=== PATIENT | female | born 1955 | race American Indian/Alaskan Native ===

== ENCOUNTER 2019-05-23 13:52 | Inpatient (IN) | payer MEDICARE, OTHER ==
[2019-05-23] MEDS ORDERED: cloNIDine 0.2 MG TAB PO ONE (14:18)
--- NOTE | 2019-05-23 14:22 | Emergency Department Report ---
HPI - General Time Seen by Provider: 05/23/19 14:10 - HPI HPI: Room 4 The pt is a 64 y/o F p/w a cc of HTN. The pt states she went to dialysis today but upon arrival the pt was found to be hypertensive and subsequently sent to the ED without performing HD. The pt is asymptomatic and only c/o being hungry. Pt states she's been compliant with her antihypertensives. The pt missed her previous HD and was last dialyzed 05/19/19 ED Past Medical Hx - Past Medical History Hx Hypertension: Yes Hx Diabetes: Yes Hx Renal Disease: Yes (ESRD T, Th, Sat) Additional medical history: hyperparathyroidism - Surgical History Additional Surgical History: right chest vas-cath, BTL - Family History Family history: no significant - Social History Smoking Status: Former Smoker (none x 1 year) Substance Use Type: None ED Review of Systems ROS: Stated complaint: HBP Other details as noted in HPI Constitutional: no symptoms reported Eyes: denies: eye pain ENT: denies: throat pain Respiratory: no symptoms reported Cardiovascular: denies: chest pain Endocrine: no symptoms reported Gastrointestinal: denies: abdominal pain Musculoskeletal: denies: back pain Neurological: denies: headache Physical Exam - Physical Exam Physical Exam: GEN: WD WD F sitting on stretcher in NAD HEENT: EOMI, NCAT NECK: Trachea midline, no stridor CV: rrr no m/r/g PULM: CTA bilat, no resp distress ABD: S/NT/ND +BS SKIN: No diaphoresis NEURO: GCS 15 MS: no deformity ED Course - Consultations Consultation #1: 05/23/19 17:14 case d/w Dr Cruz- rec pt be admitted and have HD tonight. ED Medical Decision Making - Lab Data Result diagrams: 05/23/19 14:23 05/23/19 14:23 Laboratory Tests 05/23/19 05/23/19 05/23/19 14:23 14:23 15:42 WBC 2.9 L RBC 4.33 Hgb 13.2 Hct 41.2 MCV 95 H MCH 30 MCHC 32 RDW 17.2 H Plt Count 93 L Lymph % (Auto) 35.2 H Newberry % (Auto) 5.4 Eos % (Auto) 1.1 Baso % (Auto) 1.2 Lymph # 1.0 L [place] # 0.2 Eos # 0.0 Baso # 0.0 Seg Neutrophils % 57.1 Seg Neutrophils # 1.7 L Sodium 139 Potassium 4.6 Chloride 103.9 Carbon Dioxide 17 L Anion Gap 23 BUN 55 H Creatinine 9.6 H Estimated GFR 6 BUN/Creatinine Ratio 6 Glucose 68 L Calcium 8.6 Hepatitis A IgM Ab Non-reactive Hep Bs Antigen Non-reactive Hep B Core IgM Ab Non-reactive Hepatitis C Antibody Reactive A - Differential Diagnosis HTN, ESRD Critical care attestation.: If time is entered above; I have spent that time in minutes in the direct care of this critically ill patient, excluding procedure time. ED Disposition Clinical Impression: Hypertension, ESRD needing dialysis Disposition: OP ADMIT IP TO THIS HOSP Is pt being admited?: Yes Does the pt Need Aspirin: Yes Condition: Fair Instructions: Hypertension (ED) Time of Disposition: 17:15 (Hospitalist paged (Dr Escobedo))
[2019-05-23 14:45] LABS: Basophils % (Auto) 1.2 % (0.0-1.8); Eosinophils % (Auto) 1.1 % (0.0-4.3); Hematocrit 41.2 % (35.5-45.6); Hemoglobin 13.2 gm/dl (11.8-15.2); Lymphocytes % (Auto) 35.2 % (13.4-35.0); Mean Corpuscular HGB Conc 32 % (32-34); Mean Corpuscular Volume 95 fl (84-94); Monocytes # (Auto) 0.2 K/mm3 (0.0-0.8); Monocytes % (Auto) 5.4 % (0.0-7.3); Red Blood Count 4.33 M/mm3 (3.65-5.03); Red Cell Distribution Width 17.2 % (13.2-15.2)
[2019-05-23 14:46] LABS: Platelet Count 93 K/mm3 (140-440)
[2019-05-23 14:55] LABS: Calcium 8.6 mg/dL (8.4-10.2)
[2019-05-23] MEDS ORDERED: hydrALAZINE 20 MG/1 ML INJ IV ONE (15:59)
[2019-05-23 16:18] LABS: Hepatitis C Virus Antibody Reactive (NonReactive)
[2019-05-23 17:03] LABS: Hepatitis B Surface Antigen Non-Reactive (Negative)
[2019-05-23] MEDS ORDERED: ALBUTEROL 2.5 MG/3 ML NEBU IH PRN (17:23)
--- NOTE | 2019-05-23 17:23 | History and Physical Report ---
History of Present Illness Chief complaint: I need dialysis History of present illness: 64 YO Female with ESRD on HD(T,R,Sa) last dialyzed on 05/19/19 ,DM, HTN, Hyperparathyroidism presents to ED for evaluation. Pt was in her usual state of health and went to her dialysis center for her routine scheduled dialysis. Pt acknowledges missed dialysis. Pt was found to have Systolic Blood Pressure above 225 and was unable to undergo dialysis. EMS notified, and upon arrival the patient was found to be in distress and transported to [facility]. Pt seen and evaluated in ED and found to have Hypertensive Urgency, as well as ESRD. Pt treated with supportive care and antihypertensive therapy. Nephrology consulted in ED. Pt placed in Observation status, and admitted to medical floor. Pt denies fever, chills, CP, Palpitations, NVD, Trauma, BRBPR, Productive cough, skin rash, or recent ill contacts. No prior admission for review. No medication listed for reconciliation at time of admission. Past History Past Medical History: other (see hpi) Past Surgical History: Other (Dialysis access) Social history: single. denies: smoking, alcohol abuse, prescription drug abuse Family history: hypertension Medications and Allergies Allergies Allergy/AdvReac Type Severity Reaction Status Date / Time No Known Allergies Allergy Unverified 05/23/19 14:37 Review of Systems Constitutional: no weight loss, no weight gain, no chills Ears, nose, mouth and throat: no ear pain, no ear discharge, no tinnitis, no decreased hearing, no nose pain, no nasal congestion, no sinus pressure Cardiovascular: no chest pain, no orthopnea, no rapid/irregular heart beat, no edema, no syncope, no lightheadedness Respiratory: no cough, no cough with sputum, no hemoptysis Gastrointestinal: no abdominal pain, no nausea, no diarrhea, no constipation, no change in bowel habits, no coffee ground emesis Genitourinary Female: no pelvic pain, no menorrhagia, no dysuria, no urinary frequency Rectal: no pain, no incontinence, no bleeding Musculoskeletal: no neck stiffness, no neck pain, no shooting arm pain, no arm numbness/tingling, no shooting leg pain, no leg numbness/tingling Integumentary: no rash, no pruritis, no redness, no sores, no jaundice, no boils Neurological: no transient paralysis, no paralysis, no weakness, no numbness, no tingling, no syncope, no tremors Psychiatric: no anxiety, no memory loss, no sleep disturbances, no change in appetite, no change in libido Endocrine: no cold intolerance, no heat intolerance, no excessive thirst, no polydipsia, no flushing Hematologic/Lymphatic: no easy bruising, no easy bleeding, no lymphadenopathy Allergic/Immunologic: no urticaria, no allergic rhinitis, no persistent infections, no anaphylaxis Exam - Constitutional Vitals: Temp Pulse Resp BP Pulse Ox 98.0 F 66 17 146/66 99 05/23/19 14:19 05/23/19 16:55 05/23/19 16:55 05/23/19 16:55 05/23/19 16:55 General appearance: Present: mild distress - EENT Eyes: Present: PERRL ENT: hearing intact, clear oral mucosa - Neck Neck: Present: supple, normal ROM - Respiratory Respiratory effort: normal Respiratory: bilateral: CTA - Cardiovascular Heart Sounds: Present: S1 & S2. Absent: rub, click - Extremities Extremities: pulses symmetrical, No edema Peripheral Pulses: within normal limits - Abdominal General gastrointestinal: Present: soft, non-tender, non-distended, normal bowel sounds Female genitourinary: Present: normal - Integumentary Integumentary: Present: clear, warm, dry - Musculoskeletal Musculoskeletal: gait normal, strength equal bilaterally - Psychiatric Psychiatric: appropriate mood/affect, intact judgment & insight - Neurologic Neurologic: CNII-XII intact, moves all extremities Results - Labs CBC & Chem 7: 05/23/19 14:23 05/23/19 14:23 Labs: Abnormal lab results 05/23/19 05/23/19 05/23/19 Range/Units 14:23 14:23 15:42 WBC 2.9 L (4.5-11.0) K/mm3 MCV 95 H (84-94) fl RDW 17.2 H (13.2-15.2) % Plt Count 93 L (140-440) K/mm3 Lymph % (Auto) 35.2 H (13.4-35.0) % Lymph # 1.0 L (1.2-5.4) K/mm3 Seg Neutrophils # 1.7 L (1.8-7.7) K/mm3 Carbon Dioxide 17 L (22-30) mmol/L BUN 55 H (9-20) mg/dL Creatinine 9.6 H (0.8-1.5) mg/dL Glucose 68 L (75-100) mg/dL Hepatitis C Antibody Reactive A (NonReactive) Assessment and Plan - Patient Problems (1) ESRD needing dialysis Current Visit: No Status: Acute Plan to address problem: Nephrology consulted in ED, strict I/O, monitor uop q shift, avoid nephrotoxic agents, (2) Hypertensive urgency, malignant Current Visit: No Status: Acute Plan to address problem: Monitor BP q shift, continue medical management. (3) Diabetes Current Visit: No Status: Acute Plan to address problem: ADA diet, insulin, accu check (4) DVT prophylaxis Current Visit: No Status: Acute Plan to address problem: SCD filipe BLE while in bed,
[2019-05-23] MEDS ORDERED: SODIUM CHLORIDE 0.9% 100 ML IV PRN (18:52)
[2019-05-23] MEDS: ONDANSETRON 4 MG/2 ML INJ IV PRN (20:43)
[2019-05-23] MEDS ORDERED: SODIUM CHLORIDE*PRIMING MACHINE ONLY FOR DIALYSIS MC ONE (23:45)
[2019-05-24] MEDS ORDERED: cloNIDine 0.1 MG TAB PO ONE (00:59)
[2019-05-24] MEDS: hydrALAZINE 100 MG TAB PO SCH ×4 (01:26→23:22)
[2019-05-24] MEDS: ACETAMINOPHEN 325 MG TAB PO PRN ×3 (01:31→23:20)
[2019-05-24 05:12] LABS: Calcium 8.3 mg/dL (8.4-10.2)
[2019-05-24] MEDS ORDERED: hydrALAZINE 20 MG/1 ML INJ IV ONE (06:03)
[2019-05-24] MEDS: PANTOPRAZOLE 40 MG TAB PO SCH (12:03)
[2019-05-24] MEDS: FOLIC ACID 1 MG TAB PO SCH (12:09)
--- NOTE | 2019-05-24 12:12 | Progress Note ---
Assessment and Plan Impression * End-stage renal disease on maintenance hemodialysis * Accelerated hypertension * Diabetes * Anemia secondary to ESRD Recommendations * Patient is status post dialysis yesterday * Her blood pressure is still elevated this morning. Shall adjust antihypertensive meds * Avoid nephrotoxins * Monitor fluid status and electrolytes closely * No indication for dialysis treatment today * Binders with meals * Epogen per protocol when her blood pressure allows * Adjust meds for ESRD state * Thank you very much for the consultation. Shall follow along with you Subjective Date of service: 05/24/19 Interval history: 64 YO Female with ESRD on HD(T,R,Sa) last dialyzed on 05/19/19 ,DM, HTN, Hyperparathyroidism presents to ED for evaluation. Pt was in her usual state of health and went to her dialysis center for her routine scheduled dialysis. Pt acknowledges missed dialysis. Pt was found to have Systolic Blood Pressure above 225 and was unable to undergo dialysis. EMS notified, and upon arrival the patient was found to be in distress and transported to [facility]. Pt seen and radha luated in ED and found to have Hypertensive Urgency, as well as ESRD. Pt treated with supportive care and antihypertensive therapy. Nephrology consulted in ED. Pt placed in Observation status, and admitted to medical floor. Pt denies fever, chills, CP, Palpitations, NVD, Trauma, BRBPR, Productive cough, skin rash, or recent ill contacts. No prior admission for review. No medication listed for reconciliation at time of admission. Patient was admitted to the hospital yesterday and had uneventful hemodialysis last night. Patient denies any shortness of breath today Objective - Vital Signs Vital signs: Vital Signs - 12hr 05/24/19 05/24/19 05/24/19 01:26 06:00 06:11 Temperature Pulse Rate 66 66 Pulse Rate [ Right Brachial] Respiratory Rate Blood Pressure 209/109 188/72 Blood Pressure 188/72 [Left] O2 Sat by Pulse Oximetry 05/24/19 05/24/19 07:53 08:35 Temperature 98.3 F Pulse Rate 71 Pulse Rate [ 71 Right Brachial] Respiratory 18 18 Rate Blood Pressure 183/82 Blood Pressure [Left] O2 Sat by Pulse 99 99 Oximetry - General Appearance General appearance: well-developed, well-nourished, appears stated age EENT: PERRL, mucous membranes moist Neck: no JVD, no thyromegaly, no carotid bruit, supple, other (IJ PermCath in place) Respiratory: Present: Clear to Ascultation Cardiology: regular, normal heart rate, S1S2, no murmurs Gastrointestinal: normal, normoactive bowel sounds Integumentary: other (no edema) - Lab 05/23/19 14:23 05/24/19 03:46 Most recent lab results Calcium 8.3 mg/dL (8.4-10.2) L 05/24/19 03:46 Medications & Allergies - Medications Allergies/Adverse Reactions: Allergies No Known Allergies Allergy (Unverified 05/23/19 14:37) Home Medications: Home Medications Medication Instructions Recorded Confirmed Last Taken Type Folic Acid [Folvite] 1 mg PO DAILY 05/24/19 05/24/19 Unknown History Imdur ER 60 mg PO DAILY 05/24/19 05/24/19 Unknown History Melatonin/Pyridoxine HCl (B6) 3 mg PO HS 05/24/19 05/24/19 Unknown History [Melatonin 3 mg Tablet] NIFEdipine [Nifedipine ER] 90 mg PO DAILY 05/24/19 05/24/19 Unknown History Pantoprazole [Protonix] 40 mg PO QDAY 05/24/19 05/24/19 Unknown History cloNIDine 0.1 mg PO TID 05/24/19 05/24/19 Unknown History hydrALAZINE [Apresoline TAB] 100 mg PO TID 05/24/19 05/24/19 Unknown History labetaloL [Labetalol 200mg TAB] 400 mg PO Q12HR 05/24/19 05/24/19 Unknown History Active Medications: Generic Name Dose Route Start Last Admin Trade Name Mikieq PRN Reason Stop Dose Admin Acetaminophen 650 mg 05/23/19 17:23 05/24/19 01:31 Tylenol PO 650 mg Q4H PRN Administration Pain MILD(1-3)/Fever >100.5/MOORE Albuterol 2.5 mg 05/23/19 17:23 Proventil IH Q4H PRN Shortness Of Breath Clonidine HCl 0.1 mg 05/24/19 14:00 Catapres PO Q8HR FRANKY Folic Acid 1 mg 05/24/19 12:00 Folvite PO DAILY FRANKY Hydralazine HCl 100 mg 05/24/19 01:00 05/24/19 08:38 Apresoline PO 100 mg TID FRANKY Administration Sodium Chloride 100 mls @ 999 mls/hr 05/23/19 18:52 Nacl 0.9% IV [place] PRN Hypotension Isosorbide Mononitrate 60 mg 05/24/19 11:45 Imdur PO QDAY [facility] Labetalol HCl 400 mg 05/24/19 12:00 Labetalol PO Q12HR [facility] Miscellaneous Medication 3 mg 05/24/19 22:00 Melatonin/Pyridoxine Hcl (B6) [Melatonin 3 Mg Tablet] PO HS [facility] Miscellaneous Medication 90 mg 05/24/19 11:45 Nifedipine [Nifedipine Er] PO DAILY [facility] Ondansetron HCl 4 mg 05/23/19 17:23 05/23/19 20:43 Zofran IV 4 mg Q8H PRN Administration Nausea And Vomiting Pantoprazole Sodium 40 mg 05/24/19 12:00 Protonix PO QDAY [facility] Sodium Chloride 10 ml 05/23/19 22:00 05/24/19 09:20 Sodium Chloride Flush Syringe 10 Ml IV 10 ml BID FRANKY Administration Sodium Chloride 10 ml 05/23/19 17:23 Sodium Chloride Flush Syringe 10 Ml IV PRN PRN LINE FLUSH
[2019-05-24] MEDS: NIFEdipine XL 90 MG TAB PO SCH (12:31)
[2019-05-24] MEDS: ASPIRIN EC 325 MG TAB PO SCH (13:45)
--- NOTE | 2019-05-24 13:49 | Progress Note ---
Assessment and Plan /ESRD needing dialysis Nephrology consulted in ED, avoid nephrotoxic agents, /Hypertensive urgency, malignant Monitor BP q shift, continue medical management - resumed home meds. /Diabetes type 2 ADA diet, insulin, accu check /Chest pain serial trop, EKG, aspirin, statin cardiology consult /hypokalemia, monitor, should correct with HD /DVT prophylaxis SCD filipe BLE while in bed, Subjective Date of service: 05/24/19 Interval history: Patient seen and examined c/o chest pain, BP remained elevated Objective - Constitutional Vitals: Vital Signs - 12hr 05/24/19 05/24/19 05/24/19 06:00 06:11 07:53 Temperature 98.3 F Pulse Rate 66 66 71 Pulse Rate [ Right Brachial] Respiratory 18 Rate Blood Pressure 188/72 183/82 Blood Pressure 188/72 [Left] O2 Sat by Pulse 99 Oximetry 05/24/19 05/24/19 05/24/19 08:35 12:04 12:31 Temperature Pulse Rate 75 75 Pulse Rate [ 71 Right Brachial] Respiratory 18 20 Rate Blood Pressure 172/74 172/74 Blood Pressure [Left] O2 Sat by Pulse 99 Oximetry 05/24/19 13:07 Temperature Pulse Rate Pulse Rate [ Right Brachial] Respiratory Rate Blood Pressure Blood Pressure [Left] O2 Sat by Pulse 100 Oximetry General appearance: Present: mild distress, other (mal-nourished) - EENT Eyes: PERRL, EOM intact ENT: hearing intact, clear oral mucosa Ears: bilateral: normal - Neck Neck: supple, normal ROM - Respiratory Respiratory effort: normal Respiratory: bilateral: CTA - Cardiovascular Rhythm: regular Heart Sounds: Present: S1 & S2. Absent: gallop, rub Extremities: pulses intact, No edema, normal color, Full ROM - Gastrointestinal General gastrointestinal: Present: soft, non-tender, non-distended, normal bowel sounds - Integumentary Integumentary: clear, warm, dry - Musculoskeletal Musculoskeletal: strength equal bilaterally - Neurologic Neurologic: moves all extremities - Psychiatric Psychiatric: memory intact, appropriate mood/affect, intact judgment & insight - Labs CBC & Chem 7: 05/23/19 14:23 05/24/19 03:46 Labs: Abnormal lab results 05/23/19 05/23/19 05/23/19 Range/Units 14:23 14:23 15:42 WBC 2.9 L (4.5-11.0) K/mm3 MCV 95 H (84-94) fl RDW 17.2 H (13.2-15.2) % Plt Count 93 L (140-440) K/mm3 Lymph % (Auto) 35.2 H (13.4-35.0) % Lymph # 1.0 L (1.2-5.4) K/mm3 Seg Neutrophils # 1.7 L (1.8-7.7) K/mm3 Potassium (3.6-5.0) mmol/L Carbon Dioxide 17 L (22-30) mmol/L BUN 55 H (9-20) mg/dL Creatinine 9.6 H (0.8-1.5) mg/dL Glucose 68 L (75-100) mg/dL Calcium (8.4-10.2) mg/dL Troponin T (0.00-0.029) ng/mL Hepatitis C Antibody Reactive A (NonReactive) 05/24/19 05/24/19 Range/Units 03:46 12:23 WBC (4.5-11.0) K/mm3 MCV (84-94) fl RDW (13.2-15.2) % Plt Count (140-440) K/mm3 Lymph % (Auto) (13.4-35.0) % Lymph # (1.2-5.4) K/mm3 Seg Neutrophils # (1.8-7.7) K/mm3 Potassium 3.4 L D (3.6-5.0) mmol/L Carbon Dioxide (22-30) mmol/L BUN 23 H (9-20) mg/dL Creatinine 4.9 H (0.8-1.5) mg/dL Glucose (75-100) mg/dL Calcium 8.3 L (8.4-10.2) mg/dL Troponin T 0.293 H* (0.00-0.029) ng/mL Hepatitis C Antibody (NonReactive)
[2019-05-24 14:11] LABS: Chol/HDL Ratio 1.96 %
[2019-05-24] MEDS: MORPHINE 2 MG/1 ML INJ IV PRN ×2 (14:56→19:27)
[2019-05-24] MEDS: cloNIDine 0.1 MG TAB PO SCH ×2 (14:57→23:21)
[2019-05-24] MEDS ORDERED: PYRIDOXINE HCL PO SCH (22:00)
[2019-05-24] MEDS ORDERED: MELATONIN 5 MG TAB PO SCH (22:00)
[2019-05-24] MEDS ORDERED: MELATONIN PO SCH (22:00)
[2019-05-24] MEDS: ONDANSETRON 4 MG/2 ML INJ IV PRN (23:21)
[2019-05-25] MEDS: cloNIDine 0.1 MG TAB PO SCH ×2 (06:24→13:44)
[2019-05-25] MEDS: hydrALAZINE 100 MG TAB PO SCH ×2 (08:21→13:43)
[2019-05-25] MEDS ORDERED: REGADENOSON 0.4 MG/5 ML INJ IV ONE ×2 (10:02)
[2019-05-25] MEDS ORDERED: SODIUM CHLORIDE 0.9% 500 ML 0 ML ONE (10:26)
[2019-05-25] MEDS ORDERED: AMINOPHYLLINE 50 MG in SODIUM CHLORIDE 0.9% 100 ML IV ONE (10:32)
[2019-05-25] MEDS ORDERED: AMINOPHYLLINE IV ONE (10:35)
[2019-05-25] MEDS: ONDANSETRON 4 MG/2 ML INJ IV PRN (10:35)
[2019-05-25] MEDS ORDERED: DEXTROSE 5% IV ONE (10:35)
[2019-05-25] MEDS ORDERED: WATER IV ONE (10:35)
[2019-05-25] MEDS ORDERED: AMINOPHYLLINE 500 MG/20 ML INJ IV ONE (11:00)
--- NOTE | 2019-05-25 11:08 | Consultation ---
History of Present Illness Consult date: 05/25/19 Requesting physician: NIRAV AGRAWAL Consult reason: chest pain, elevated troponin History of present illness: The patient claims that she was brought to the hospital on account of severe elevated BP at dialysis yesterday. However, while in the hospital, she developed substernal chest pressure without radiation. There is no other associated symptom. Cardiac enzymes are however elevated. Past History Past Medical History: diabetes, ESRD, hypertension, hyperlipidemia Past Surgical History: Other (creation of AV fistula and tubal ligation) Social history: smoking (former smoker). denies: alcohol abuse Family history: CAD Medications and Allergies Allergies Allergy/AdvReac Type Severity Reaction Status Date / Time No Known Allergies Allergy Unverified 05/23/19 14:37 Home Medications Medication Instructions Recorded Confirmed Last Taken Type Aspirin EC [Halfprin EC] 81 mg PO QDAY #30 tablet. 05/24/19 Unknown Rx Folic Acid [Folvite] 1 mg PO DAILY #30 05/24/19 Unknown Rx Imdur ER 60 mg PO DAILY #30 05/24/19 Unknown Rx Melatonin/Pyridoxine HCl (B6) 3 mg PO HS #14 05/24/19 Unknown Rx [Melatonin 3 mg Tablet] NIFEdipine [Nifedipine ER] 90 mg PO DAILY #30 05/24/19 Unknown Rx Pantoprazole [Protonix TAB] 40 mg PO QDAY #30 05/24/19 Unknown Rx cloNIDine 0.1 mg PO TID #90 05/24/19 Unknown Rx hydrALAZINE [Apresoline TAB] 100 mg PO TID #90 tab 05/24/19 Unknown Rx labetaloL [Labetalol 200mg TAB] 400 mg PO Q12HR #60 05/24/19 Unknown Rx Active Meds: Active Medications Acetaminophen (Tylenol) 650 mg PO Q4H PRN PRN Reason: Pain MILD(1-3)/Fever >100.5/MOORE Last Admin: 05/24/19 23:20 Dose: 650 mg Documented by: Albuterol (Proventil) 2.5 mg IH Q4H PRN PRN Reason: Shortness Of Breath Aspirin (Ecotrin) 325 mg PO QDAY [facility] Last Admin: 05/24/19 13:45 Dose: 325 mg Documented by: Clonidine HCl (Catapres) 0.1 mg PO Q8HR [facility] Last Admin: 05/25/19 06:24 Dose: Not Given Documented by: Folic Acid (Folvite) 1 mg PO DAILY [facility] Last Admin: 05/24/19 12:09 Dose: 1 mg Documented by: Hydralazine HCl (Apresoline) 100 mg PO TID [facility] Last Admin: 05/25/19 08:21 Dose: Not Given Documented by: Sodium Chloride (Nacl 0.9%) 100 mls @ 999 mls/hr IV [place] PRN PRN Reason: Hypotension Isosorbide Mononitrate (Imdur) 60 mg PO QDAY [facility] Last Admin: 05/24/19 12:31 Dose: 60 mg Documented by: Labetalol HCl (Labetalol) 400 mg PO Q12HR [facility] Last Admin: 05/24/19 23:21 Dose: 400 mg Documented by: Melatonin (Melatonin) 5 mg PO HS [facility] Last Admin: 05/24/19 23:21 Dose: 5 mg Documented by: Morphine Sulfate (Morphine) 2 mg IV Q4H PRN PRN Reason: Pain, Moderate (4-6) Last Admin: 05/24/19 19:27 Dose: 2 mg Documented by: Nifedipine (Procardia Xl) 90 mg PO QDAY [facility] Last Admin: 05/24/19 12:31 Dose: 90 mg Documented by: Ondansetron HCl (Zofran) 4 mg IV Q8H PRN PRN Reason: Nausea And Vomiting Last Admin: 05/25/19 10:35 Dose: 4 mg Documented by: Pantoprazole Sodium (Protonix) 40 mg PO QDAY [facility] Last Admin: 05/24/19 12:03 Dose: 40 mg Documented by: Sodium Chloride (Sodium Chloride Flush Syringe 10 Ml) 10 ml IV BID [facility] Last Admin: 05/24/19 23:22 Dose: 10 ml Documented by: Sodium Chloride (Sodium Chloride Flush Syringe 10 Ml) 10 ml IV PRN PRN PRN Reason: LINE FLUSH Review of Systems Constitutional: no fever, no chills Ears, nose, mouth and throat: no ear pain, no ear discharge, no sore throat Cardiovascular: chest pain, no orthopnea, no palpitations, no shortness of breath Respiratory: no cough, no hemoptysis, no shortness of breath Gastrointestinal: no abdominal pain, no nausea, no vomiting, no constipation Genitourinary Female: no dysuria, no urinary frequency Rectal: no pain, no incontinence Musculoskeletal: no neck stiffness, no neck pain, no myalgias Integumentary: no rash, no pruritis Neurological: no weakness, no parathesias, no headaches Endocrine: no cold intolerance, no heat intolerance Hematologic/Lymphatic: no easy bruising, no easy bleeding Allergic/Immunologic: no urticaria, no wheezing Physical Examination Vital Signs Last Vital Signs Temp 98.1 F 05/25/19 07:34 Pulse 66 05/25/19 08:00 Resp 16 05/25/19 08:00 BP 94/38 05/25/19 07:34 Pulse Ox 99 05/25/19 08:00 General appearance: no acute distress HEENT: Positive: EOMI, Normocephaly, Mucus Membranes Moist Neck: Positive: neck supple, trachea midline Cardiac: Positive: Reg Rate and Rhythm, S1/S2 Lungs: Positive: clear to auscultation Neuro: Positive: Grossly Intact Abdomen: Positive: Soft, Active Bowel Sounds. Negative: Tender Skin: Positive: Clear. Negative: Rash Musculoskeletal: Normal Range of Motion Extremities: Present: normal. Absent: edema Results 05/23/19 14:23 05/25/19 02:16 Lipids 05/24/19 Range/Units 12:23 Triglycerides 97 (2-149) mg/dL Cholesterol 100 (50-199) mg/dL HDL Cholesterol 51 (40-59) mg/dL Cholesterol/HDL Ratio 1.96 % Comprehensive Metabolic Panel 05/25/19 Range/Units 02:16 Sodium 138 (137-145) mmol/L Potassium 4.1 D (3.6-5.0) mmol/L Chloride 102.2 (98-107) mmol/L Carbon Dioxide 21 L (22-30) mmol/L BUN 29 H (7-17) mg/dL Creatinine 6.2 H (0.7-1.2) mg/dL Glucose 70 (65-100) mg/dL Calcium 8.0 L (8.4-10.2) mg/dL - Imaging and Cardiology EKG: image reviewed EKG interpretations - Telemetry EKG Rhythm: Sinus Rhythm Chamber hypertrophy or enlargement: left ventricular hypertro Myocardial infarction: septal LA (old age or ind, anterior LA (old age or i Assessment and Plan Optimize antihypertensive regimen. Lexiscan stress test with nuclear imaging and echocardiogram. - Patient Problems (1) Hypertensive urgency Current Visit: Yes Status: Acute (2) Elevated troponin Current Visit: Yes Status: Acute (3) Chest pain Current Visit: Yes Status: Acute (4) Abnormal ECG Current Visit: Yes Status: Acute (5) ESRD (end stage renal disease) on dialysis Current Visit: Yes Status: Chronic (6) Diabetes mellitus Current Visit: Yes Status: Chronic Qualifiers: Diabetes mellitus type: type 2
[2019-05-25] MEDS: ASPIRIN EC 325 MG TAB PO SCH (12:15)
[2019-05-25] MEDS: PANTOPRAZOLE 40 MG TAB PO SCH (12:16)
[2019-05-25] MEDS: FOLIC ACID 1 MG TAB PO SCH (12:16)
[2019-05-25] MEDS: NIFEdipine XL 90 MG TAB PO SCH (12:17)
[2019-05-25 12:20] VITALS: BP 94/46
--- NOTE | 2019-05-25 12:25 | Event Note ---
Date: 05/25/19 S/p lexiscan MPI stress test this AM which showed fixed defects, no significant ischemia. Echo reviewed - EF 55-60%, no significant abnormalities. Currently stable cardiac status. Pt may discharge home from cardiology standpoint. Recommend pt follow up in our office with Dr. Calzada within 1-2 weeks ([phone]). Nataliya FLOYD NP / DR. CALZADA
[2019-05-25] MEDS: ACETAMINOPHEN 325 MG TAB PO PRN (12:41)
--- NOTE | 2019-05-25 14:28 | Discharge Summary ---
Providers - Providers Date of Admission: 05/24/19 13:28 Date of discharge: 05/25/19 Attending physician: NIRAV AGRAWAL 05/23/19 17:25 Consult to Physician [CONS] Routine Comment: DR PATRICK DURANT W/DR GRIFFIN @[id number] Consulting Provider: REEMA GRIFFIN Physician Instructions: Reason For Exam: esrd 05/24/19 13:45 Consult to Physician [CONS] Routine Comment: SPOKE IN PERSON/ DIANA Consulting Provider: NICOLETTE AHUJA Physician Instructions: Reason For Exam: chest pain [facility] Condition: Fair Pertinent studies: MPI stress test Hospital course: The patient claims that she was brought to the hospital on account of severe elevated BP at dialysis yesterday. However, while in the hospital, she developed substernal chest pressure without radiation. There was no other associated symptom. S/p lexiscan MPI stress test this AM which showed fixed defects, no significant ischemia. Echo reviewed - EF 55-60%, no significant abnormalities. Currently stable cardiac status. Pt may discharge home from cardiology standpoint. Recommend pt follow up in our office with Dr. Torres within 1-2 weeks ([phone]). Discharge diagnosis and Mx: /ESRD needing dialysis Nephrology consulted in ED, avoided nephrotoxic agents, /Hypertensive urgency, malignant Monitored BP q shift, continue medical management - resumed home meds. /Diabetes type 2 ADA diet, insulin, accu check /Chest pain, likely GERD monitored with serial trop, EKG, aspirin, statin cardiology consulted, s/p MPI stress test - normal /hypokalemia, monitor, should correct with HD /SEvere PCM, nutrition consulted, dietary supplement /DVT prophylaxis SCD filipe BLE while in bed, Disposition: DC/TX-06 HOME [facility] Time spent for discharge: 34 minutes Core Measure Documentation - Palliative Care Palliative Care/ Comfort Measures: Not Applicable - Core Measures Any of the following diagnoses?: none Exam - Constitutional Vitals: Temp Pulse Resp BP Pulse Ox 98.1 F 63 18 94/46 100 05/25/19 07:34 05/25/19 12:06 05/25/19 12:41 05/25/19 12:06 05/25/19 12:06 General appearance: Present: no acute distress, other (malnourished) - EENT Eyes: Present: PERRL ENT: hearing intact, clear oral mucosa - Neck Neck: Present: supple, normal ROM - Respiratory Respiratory effort: normal Respiratory: bilateral: CTA - Cardiovascular Heart Sounds: Present: S1 & S2. Absent: rub, click - Extremities Extremities: pulses symmetrical, No edema Peripheral Pulses: within normal limits - Abdominal General gastrointestinal: Present: soft, non-tender, non-distended, normal bowel sounds Female genitourinary: Present: normal - Integumentary Integumentary: Present: clear, warm, dry - Musculoskeletal Musculoskeletal: gait normal, strength equal bilaterally - Psychiatric Psychiatric: appropriate mood/affect, intact judgment & insight - Neurologic Neurologic: CNII-XII intact, moves all extremities Plan Activity: fall precautions Weight Bearing Status: Non-Weight Bearing Diet: renal, other (Nephro supplement 1 can per day) Special Instructions: restrict fluid intake to (1.2 l daily), record daily BP diary Follow up with: [facility] CASA [Primary Care Provider] - 7 Days POLLY YEH MD [Staff Physician] - 7 Days Prescriptions: hydrALAZINE [Apresoline TAB] 100 mg PO TID #90 tab cloNIDine 0.1 mg PO TID #90 Folic Acid [Folvite] 1 mg PO DAILY #30 Aspirin EC [Halfprin EC] 81 mg PO QDAY #30 tablet.dr Leahydur ER 60 mg PO DAILY #30 labetaloL [Labetalol 200mg TAB] 400 mg PO Q12HR #60 Melatonin/Pyridoxine HCl (B6) [Melatonin 3 mg Tablet] 3 mg PO HS #14 NIFEdipine [Nifedipine ER] 90 mg PO DAILY #30 Pantoprazole [Protonix TAB] 40 mg PO QDAY #30
--- NOTE | 2019-05-25 14:42 | Treadmill Report ---
LEXISCAN STRESS TEST REPORT REASON FOR STUDY: Chest pain. STRESS TEST PROTOCOL: The patient received 0.4 mg of Lexiscan intravenously over 10 seconds. Tc-99m Tetrofosmin was subsequently injected. Baseline ECG, normal sinus rhythm. Anteroseptal myocardial infarction of undetermined age. T-wave abnormality. Consider inferior and anterolateral ischemia. Lexiscan ECG, no significant change from baseline. No chest pain. The patient experienced severe nausea with Lexiscan infusion associated with hypotension. She received 50 mg of IV aminophylline injection and 4 mg of Zofran with improvement in her symptoms and BP. No arrhythmias. IMPRESSION: Nondiagnostic due to baseline ECG abnormalities. Nuclear imaging report to follow. [facility]# [id number] NEREYDA/NTS
--- NOTE | 2019-05-25 17:11 | Progress Note ---
Assessment and Plan - Patient Problems (1) Diabetes Status: Acute Plan to address problem: Diabetes mellitus type 2 Continue medications Monitor fingerstick (2) Elevated troponin Status: Acute Plan to address problem: Elevated troponin Status post Lexiscan cardiology following (3) Hypertensive urgency Status: Acute Plan to address problem: Hypertensive urgency blood pressure has since improved Continue blood pressure medications (4) ESRD (end stage renal disease) on dialysis Status: Chronic Plan to address problem: End-stage renal disease on dialysis continue hemodialysis Saturday Subjective Interval history: 64-year-old lady with medical history significant for end-stage renal disease on hemodialysis admitted with hypertensive urgency received hemodialysis on the weekend Patient is status post Lexiscan today Objective - Vital Signs Vital signs: Vital Signs - 12hr 05/25/19 05/25/19 05/25/19 06:24 07:34 08:00 Temperature 98.1 F Pulse Rate 66 Pulse Rate [ 66 Right Brachial] Respiratory 16 16 Rate Blood Pressure 97/39 94/38 O2 Sat by Pulse 99 99 Oximetry 05/25/19 05/25/19 05/25/19 10:07 10:15 10:22 Temperature Pulse Rate 62 Pulse Rate [ Right Brachial] Respiratory Rate Blood Pressure 90/43 93/43 85/41 O2 Sat by Pulse Oximetry 05/25/19 05/25/19 05/25/19 10:28 10:29 10:30 Temperature Pulse Rate 72 82 81 Pulse Rate [ Right Brachial] Respiratory Rate Blood Pressure 85/43 64/32 84/47 O2 Sat by Pulse Oximetry 05/25/19 05/25/19 05/25/19 10:31 10:32 10:34 Temperature Pulse Rate 83 82 Pulse Rate [ Right Brachial] Respiratory Rate Blood Pressure 101/46 100/42 101/46 O2 Sat by Pulse Oximetry 05/25/19 05/25/19 05/25/19 10:35 12:06 12:41 Temperature Pulse Rate 63 Pulse Rate [ Right Brachial] Respiratory 18 Rate Blood Pressure 100/42 94/46 O2 Sat by Pulse 100 Oximetry - General Appearance General appearance: chronically ill, frail EENT: ATNC, PERRL Neck: no JVD Respiratory: Present: Clear to Ascultation Cardiology: regular, S1S2 Gastrointestinal: normal, normoactive bowel sounds Integumentary: no rash Neurologic: alert and oriented x3 Musculoskeletal: other (no edema) Psychiatric: mood/affect appropriate, cooperative - Lab 05/23/19 14:23 05/25/19 02:16 Most recent lab results Calcium 8.0 mg/dL (8.4-10.2) L 05/25/19 02:16 - Imaging Chest x-ray: image reviewed Medications & Allergies - Medications Allergies/Adverse Reactions: Allergies No Known Allergies Allergy (Unverified 05/23/19 14:37) Home Medications: Home Medications Medication Instructions Recorded Confirmed Last Taken Type Aspirin EC [Halfprin EC] 81 mg PO QDAY #30 tablet.dr 05/24/19 Unknown Rx Folic Acid [Folvite] 1 mg PO DAILY #30 05/24/19 Unknown Rx Imdur ER 60 mg PO DAILY #30 05/24/19 Unknown Rx Melatonin/Pyridoxine HCl (B6) 3 mg PO HS #14 05/24/19 Unknown Rx [Melatonin 3 mg Tablet] NIFEdipine [Nifedipine ER] 90 mg PO DAILY #30 05/24/19 Unknown Rx Pantoprazole [Protonix TAB] 40 mg PO QDAY #30 05/24/19 Unknown Rx cloNIDine 0.1 mg PO TID #90 05/24/19 Unknown Rx hydrALAZINE [Apresoline TAB] 100 mg PO TID #90 tab 05/24/19 Unknown Rx labetaloL [Labetalol 200mg TAB] 400 mg PO Q12HR #60 05/24/19 Unknown Rx
--- NOTE | 2019-05-26 06:02 | Treadmill Report ---
THALLIUM REPORT REASON FOR STUDY: Chest pain. IMAGING PROTOCOL: The patient received 10 mCi of technetium-99m Tetrofosmin for rest imaging, and 28 mCi of technetium-99m Tetrofosmin for stress imaging. Imaging for all procedures was completed 30-90 minutes following the initial injection of Technetium 99m Tetrofosmin. SPECT imaging in the 180 degree arc was performed in the right anterior oblique projection. Computerized reconstruction of the images was performed for analysis. NUCLEAR IMAGING RESULTS: Normal left ventricular cavity size with no change from stress to rest. Distribution of radionuclide within the left ventricle revealed a small area of photo-induction involving the inferolateral wall. The degree of photo-induction is mild. Rest imaging does not show any significant improvement in this defect. Gated SPECT imaging revealed normal global LV systolic function with no significant wall motion abnormalities. The calculated left ventricular ejection fraction is 53%. IMPRESSION: Small fixed inferolateral defect. Normal global left ventricular systolic function with no significant wall motion abnormalities. EF: 53%. These findings suggest a small area of prior infarction in the left circumflex coronary artery territory. No evidence of significant stress-induced ischemia. JOB# [id number] NEREYDA/MARY JANE WILSON
== END 2019-05-25 16:50 | disposition home health service (06) | DRG 304 ==
LOC: EDSEX → ED 13:52 → 2B-ACE 17:23 → OBSVTOIN 05-24 13:28
PROVIDERS: ADMIT Internal Medicine; ATTEND Internal Medicine
PROC: 5A1D70Z Performance of Urinary Filtration, Intermittent, Less than 6 Hours Per Day (ICD-10-PCS; principal; 2019-05-23)
DX: I16.0 Hypertensive urgency (principal); E43 Unspecified severe protein-calorie malnutrition; N18.6 End stage renal disease; Z68.1 Body mass index [BMI] 19.9 or less, adult; I12.0 Hypertensive chronic kidney disease with stage 5 chronic kidney disease or end stage renal disease; E11.22 Type 2 diabetes mellitus with diabetic chronic kidney disease; E87.6 Hypokalemia; R79.89 Other specified abnormal findings of blood chemistry; R94.31 Abnormal electrocardiogram [ECG] [EKG]; D63.1 Anemia in chronic kidney disease; E21.3 Hyperparathyroidism, unspecified; Z99.2 Dependence on renal dialysis; Z98.51 Tubal ligation status; Z82.49 Family history of ischemic heart disease and other diseases of the circulatory system; Z79.82 Long term (current) use of aspirin; Z79.899 Other long term (current) drug therapy
CPT/HCPCS: 36415; 78452; 80048; 80061; 80074; 82962; 84484; 85025; 93005; 93010; 93017; 93306; 94760; 96374; G0378; A9502; J0280; J0360; J2270; J2405; J2785; J7030; J7040